=== PATIENT | female | born 2000 | race Hispanic/Latino ===

== ENCOUNTER 2022-08-12 11:40 | Emergency (ER) | payer OTHER ==
[~2022-08-12] VITALS: Ht 162.6 cm; Wt 70.3 kg
[2022-08-12] MEDS ORDERED: ONDANSETRON ODT8 MG PO (16:52)
[2022-08-12 17:01] VITALS: BP 106/66
== END 2022-08-12 17:02 | disposition home or self-care (01) ==
LOC: ED 11:40
DX: K29.00 Acute gastritis without bleeding (principal)
CPT/HCPCS: 36415; 80053; 81001; 83690; 85025; 85060; 99284